=== PATIENT | male | born 1985 | race Caucasian/White ===

== ENCOUNTER 2022-03-19 10:57 | Emergency (ER) | payer MEDICAID ==
[~2022-03-19] VITALS: Ht 167.6 cm; Wt 86.0 kg
[2022-03-19 11:00] VITALS: BP 158/101
== END 2022-03-19 12:25 | disposition left against medical advice (07) ==
LOC: ER 10:57
DX: Z53.21 Procedure and treatment not carried out due to patient leaving prior to being seen by health care provider (principal); R07.9 Chest pain, unspecified
CPT/HCPCS: 93005